=== PATIENT | male | born 1945 | race Caucasian/White ===

== ENCOUNTER 2019-04-22 11:52 | Emergency (ER) | payer MEDICARE ==
--- OUTSIDE RECORDS SUMMARY | 2019-04-22 12:00 | XMS REPORT | Continuity of Care Document ---
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 Problems Description No Information Available Social History Type Date Description Comments Sex Unknown ETOH Use Denies alcohol use Tobacco Use Start: Unknown Patient has never smoked Recreational Drug Use Denies Drug Use Smoking Status Reviewed: 04/17/19 Patient has never smoked Exercise Type/Frequency Exercises regularly walk treadmill 30 minutes at incline, dog walking 15 minutes daily Allergies, Adverse Reactions, Alerts Active Allergies Reaction Severity Comments Date Penicillin Hives 04/17/2019 Isopropyl Alcohol blisters 04/17/2019 Doxycycline Facial swelling 04/17/2019 Medications Active Medications SIG Qnty Indications Ordering Date Provider Eplerenone tab by mouth every day Unknown 25mg Tablets Finasteride 1 by mouth every day Unknown 5mg Tablets Aspirin 81 Low Dose 1 by mouth twice daily Unknown 81mg Chewtabs Flax Oil Xtra 2 by mouth every day Unknown Capsules Myrbetriq 1 tablet daily Unknown 25mg Tablets ER 24HR Lisinopril 1 by mouth every day Unknown 20mg Tablets Vitamin D 1 by mouth every day Unknown 50mcg (1999 [place]) Tablets Metformin HCL ER 2 daily in the morning Unknown 500mg Tablets ER 24HR Daily Multi 1 by mouth every day Unknown Tablets Cpap with humidification Unknown Device for use while sleeping Immunizations Description No Information Available Vital Signs Date Vital Result Comment 04/17/2019 3:12pm Height 69 inches 5'9" Weight 236.00 lb w/ o shoes Heart Rate 86 /min BP Systolic Sitting 161 mmHg BP Diastolic Sitting 91 mmHg BMI (Body Mass Index) 34.8 kg/m2 Results Description No Information Available Procedures Description No Information Available Medical Devices Description No Information Available Encounters Description No Information Available Assessments Date Code Description Provider 04/17/2019 E11.65 Type 2 diabetes mellitus with hyperglycemia Jero Maldonado MD 04/17/2019 I10 Essential (primary) hypertension Jero Maldonado MD Plan of Treatment 04/17/2019 - Jero Maldonado MDE11.65 Type 2 diabetes mellitus with hyperglycemiaInstructions:1. Continue metformin ER at a dose of 1000-2000mg daily. 2. Follow-up with PCP for diabetes and cholesterol in the future. 3. Consider starting rosuvastatin or pravastatin in the future to reduce your risk of cardiovascular disease.I10 Essential (primary) hypertension Functional Status Description No Information Available Mental Status Description No Information Available Referrals Description No Information Available
[2019-04-22 12:26] VITALS: BP 155/98
--- NOTE | 2019-04-22 12:36 | UC ---
Skin Complaint HPI - HPI Summary HPI Summary: Pt scratched something on his left lower back this morning causing it to bleed. He is concerned this may be a tick embedded since [facility]. Unsure of last tetanus. Nurse called PCP and it was 2003. - History of Current Complaint Chief Complaint: UCSkin Time Seen by Provider: 04/22/19 12:29 Stated Complaint: SKIN ISSUE Hx Obtained From: Patient Onset/Duration: Sudden Onset Skin Exposure Onset/Duration: Minutes Ago Timing: Constant Onset Severity: Mild Current Severity: Mild Pain Intensity: 0 Location: Other - left lower back Character: Raised Aggravating Factor(s): Other - pt has been scratching it and it wouldn't stop bleeding Alleviating Factor(s): Nothing Associated Signs & Symptoms: Positive: Negative - Allergy/Home Medications Allergies/Adverse Reactions: Allergies Allergy/AdvReac Type Severity Reaction Status Date / Time doxycycline Allergy Hives Verified 04/22/19 12:27 Penicillins Allergy Rash Verified 04/22/19 12:27 Home Medications: Home Medications metFORMIN* [Glucophage 1000 MG TAB *] 1 tab PO DAILY 04/22/19 [History Confirmed 04/22/19] PMH/Surg Hx/FS Hx/Imm Hx Previously Healthy: Yes Endocrine History: Diabetes Cardiovascular History: Cardiac Disease, Hypertension Other History Of: Negative For: Anticoagulant Therapy - Surgical History Surgical History: Yes Surgery Procedure, Year, and Place: Appendectomy 1997; CHOLECYSTECTOMY - Family History Known Family History: Positive: Non-Contributory - Social History Occupation: Retired Alcohol Use: None Substance Use Type: None Smoking Status (MU): Never Smoked Tobacco - Immunization History Most Recent Influenza Vaccination: 2012 Most Recent Tetanus Shot: 2010 Most Recent Pneumonia Vaccination: has had Review of Systems All Other Systems Reviewed And Are Negative: Yes Skin: Positive: Other - scabbed area left lower back, not presently bleeding. Is Patient Immunocompromised?: No Physical Exam Triage Information Reviewed: Yes Appearance: Well-Appearing, No Pain Distress, Well-Nourished Vital Signs: Initial Vital Signs Temp 97.1 F 04/22/19 12:24 Pulse 77 04/22/19 12:24 Resp 12 04/22/19 12:24 BP 155/98 04/22/19 12:24 Pulse Ox 97 04/22/19 12:24 Vital Signs Reviewed: Yes Skin: Positive: Other - one lesion measuring approximately 4-5mm, partially avulsed, not bleeding Course/Dx - Course Course Of Treatment: Pt is comfortable here, a Tdap was given. A bandaid was applied. I urged the patient to see a clinical associate in the next week to get this area checked. Change the bandaid daily. - Diagnoses Provider Diagnosis: Skin lesion of back Discharge ED - Sign-Out/Discharge Documenting (check all that apply): Patient Departure All imaging exams completed and their final reports reviewed: No Studies - Discharge Plan Condition: Good Disposition: HOME Referrals: Magda Sherwood MD [Primary Care Provider] - Mahnaz Berry [Medical Doctor] - Additional Instructions: Change the bandaid daily. Avoid scratching. Follow up with a clinical associate this week or next week for a recheck of the lesion. You received a Tdap tetanus immunization which is good for 8-10 years - Billing Disposition and Condition Condition: GOOD Disposition: Home
[2019-04-22] MEDS ORDERED: Tetan/Diph/Pertus SYR(Tdap)* 0.5 ML SYR(BOOSTRIX) use SYR contains LATEX IM ONE (12:38)
== END 2019-04-22 12:49 | disposition home or self-care (01) ==
LOC: UCEAST 11:52
DX: L98.9 Disorder of the skin and subcutaneous tissue, unspecified (principal); E11.9 Type 2 diabetes mellitus without complications; I10 Essential (primary) hypertension; Z88.0 Allergy status to penicillin; Z23 Encounter for immunization; Z88.1 Allergy status to other antibiotic agents; Z79.84 Long term (current) use of oral hypoglycemic drugs
CPT/HCPCS: 90471; 90715; 99211; G0463